=== PATIENT | female | born 1970 | race Hispanic/Latino ===

== ENCOUNTER 2020-02-18 22:22 | Observation (INO) | payer BC, OTHER ==
[~2020-02-18] VITALS: Ht 152.4 cm; Wt 115.2 kg
[2020-02-18 23:06] LABS: BASOPHILS % (AUTO) 0.4 % (0.0-5.0); HEMATOCRIT 37.7 % (36-48); MEAN CORPUSCULAR HEMOGLOBIN 23.1 pg (27.0-33.0); MEAN CORPUSCULAR HGB CONC 29.7 g/dL (32.0-36.0); MEAN CORPUSCULAR VOLUME 77.7 fL (79-99); MONOCYTES % (AUTO) 6.8 % (3.0-13.0); NEUTROPHILS % (AUTO) 69.3 % (40.0-77.0); PLATELET COUNT (AUTO) 302 K/uL (130-400); RED BLOOD CELL COUNT(AUTO) 4.85 MIL/uL (4.00-5.50); RED CELL DISTRIBUTION WIDTH 17.6 % (11.0-15.5); WHITE BLOOD COUNT (AUTO) 14.9 K/uL (4.8-10.8)
[2020-02-18 23:18] LABS: CREATININE 1.2 mg/dL (0.5-1.5); POTASSIUM 3.3 mmol/L (3.5-5.1)
[2020-02-18 23:22] LABS: INR 0.92 (0.85-1.15); PARTIAL THROMBOPLASTIN TIME 26.3 SEC (26.3-35.5)
[2020-02-18 23:23] LABS: ALBUMIN 3.3 g/dL (3.5-5.0); BILIRUBIN,TOTAL 0.2 mg/dL (0.2-1.0); TOTAL PROTEIN, SERUM 7.5 g/dL (6.0-8.3)
[2020-02-18] MEDS ORDERED: NITROGLYCERIN 0.4 MG SL TAB SL ONE (23:26)
[2020-02-18] MEDS ORDERED: POTASSIUM BICARB/CIT AC 25 MEQ TABLET.EFF ONE (23:47)
[2020-02-19] VITALS (7 sets, daily range): BP systolic 122–180; BP diastolic 53–84
[2020-02-19 00:02] LABS: BILIRUBIN,URINE Negative (NEGATIVE); COLOR,URINE Yellow (YELLOW); GLUCOSE, URINE (UA) Negative (NEGATIVE); KETONES,URINE Negative (NEGATIVE); LEUKOCYTE ESTERASE ,URINE Negative (NEGATIVE); NITRATE,URINE Negative (NEGATIVE); OCCULT BLOOD,URINE Negative (NEGATIVE); PROTEIN,URINE Negative (NEGATIVE)
[2020-02-19 00:03] LABS: APPEARANCE,URINE CLEAR (CLEAR)
[2020-02-19] MEDS ORDERED: NITROGLYCERIN 1GM/1 INCH PACKET TD ONE (03:18)
[2020-02-19] MEDS ORDERED: [UNRECOGNIZED DRUG - OTHER] PO (05:07)
[2020-02-19] MEDS ORDERED: HYDR25TA PO (05:07)
[2020-02-19] MEDS ORDERED: METO100T14 PO (05:07)
--- NOTE | 2020-02-19 05:34 | NUR ---
DR REGI EATON PT'S BP ELEVATED
[2020-02-19] MEDS: KETOROLAC TROMETHAMINE 15MG/ML IV SCH (05:45)
[2020-02-19] MEDS ORDERED: HYDRALAZINE HCL 20 MG/ML VIAL IV PRN (05:45)
[2020-02-19] MEDS ORDERED: HYDRALAZINE HCL 20 MG/ML VIAL ONE (05:46)
[2020-02-19] MEDS ORDERED: KETOROLAC TROMETHAMINE 15MG/ML ONE (05:47)
--- NOTE | 2020-02-19 05:54 | NUR ---
DR. DELUNA AWARE OF PT'S COMPLAINING OF CHEST PAIN AND ARM PAIN STILL AND PT'S VITAL SIGNS STATED OK TO GIVE HYDROCHLOROTHIAZIDE MED AM BUT HOLD METOPROLOL AND PRN HYDRALAZINE FOR SBP >160 TO GIVE NOW ALONG WITH TORADOL 15 MG IV ONE TIME ONLY
[2020-02-19] MEDS: HYDROCHLOROTHIAZIDE 25 MG TABLET PO SCH (09:13)
[2020-02-19] MEDS ORDERED: REGADENOSON 0.4 MG/5 ML PF SYG IVP SCH (10:30)
[2020-02-19] MEDS ORDERED: METOPROLOL TARTRATE 50 MG TAB ONE (16:00)
--- NOTE | 2020-02-19 16:26 | NUR ---
INITIAL SW spoke with patient's spouse, Eduin Tena, [phone]. Patient has no home services or DME. Patient is able to complete ADL's and drives. 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 PCP is Dr. Jennifer Mahmood. Pharmacy is [facility] located in [place]. DCP is home. Addendum: 02/19/20 at 1628 by FLORIDALMA CABRALES SS Amended: Links added.
--- NOTE | 2020-02-19 17:00 | NUR ---
CALLED DR. DELUNA CALLED DR. DELUNA, NO ANSWER. LEFT VOICEMAIL THAT [facility] RESULT AVAILABLE FOR PATIENT IN 319. AWAITING CALLBACK.
--- NOTE | 2020-02-19 18:00 | NUR ---
ATTEMPTED TO REACH DR. DELUNA AGAIN CALLED DR. DELUNA AGAIN TO REPORT [facility] RESULTS. NO ANSWER. WILL REATTEMPT TO CALL.
--- NOTE | 2020-02-19 19:11 | NUR ---
REATTEMPTED TO REACH DR. DELUNA AGAIN CALLED DR. DELUNA AGAIN TO REPORT [facility] RESULTS. NO ANSWER. REPORTED TO CHARGE NURSE SIMONE THAT I HAD [address] UNSUCCESSFUL ATTEMPTS TO CONTACT DR. DELUNA.
[2020-02-20 04:00] VITALS: BP 140/65
[2020-02-20] MEDS: KETOROLAC TROMETHAMINE 15MG/ML IV SCH (05:45)
[2020-02-20 07:31] VITALS: BP 179/87
--- NOTE | 2020-02-20 08:00 | NUR ---
NOTE PATIENT [id number]. DENIES PAIN OR DISCOMFORT NO CHEST PAIN. CAME IN WITH CHEST PAIN AND UNDERWENT WORKUP WITH [facility] BEING THE LAST EXAM WHICH WAS NEGATIVE ALONG WITH CARDIAC ENZYMES. BP HAS BEEN ELEVATED SINCE ADMISSION AND LAST NIGHT HAS BEEN NORMAL. THIS AM WAS ELEVATED IN THE 160'S SYSTOLIC BUT THAT WAS BEFORE HER MEDS. DR DELUNA WAS MADE AWARE BY TELEPHONE OF PATIENT'S STATUS BP ELEVATED AND NO LABS FOR 2 DAYS WITH [facility] ELEVATED IN THE 14'S ON ADMISSION BUT GAVE DC ORDERS AND HE WILL SEE PATIENT AT HIS OFFICE WITHIN ONE WEEK. PATIENT HAS BEEN AFEBRILE THIS WHOLE STAY. REPORTS SHE HAD SOME COUGH FOR ABOUT TWO WEEKS AT HOME ALONG WITH CHEST CONGESTION BUT NO FEVER. ON ADMISSION SHE ALSO HAD CXR DONE WITH NEGATIVE FINDINGS. DISCHARGE INSTRUCTIONS GIVEN TO HER AT THIS TIME. VERBALIZED UNDERSTANDING. REFER TO SUMMARY FOR DETAILS.
[2020-02-20 08:02] VITALS: BP 166/100
[2020-02-20] MEDS: HYDROCHLOROTHIAZIDE 25 MG TABLET PO SCH (08:11)
[2020-02-20] MEDS ORDERED: METOPROLOL TARTRATE 50 MG TAB PO SCH (09:00)
== END 2020-02-20 08:30 | disposition home or self-care (01) ==
LOC: EDH 22:22 → EDHIP 02-19 03:31 → 3CH 02-19 03:52
PROVIDERS: ADMIT Internal Medicine; ATTEND Internal Medicine
DX: K29.00 Acute gastritis without bleeding (principal); R07.2 Precordial pain; I10 Essential (primary) hypertension; E66.01 Morbid (severe) obesity due to excess calories; K21.9 Gastro-esophageal reflux disease without esophagitis; I25.2 Old myocardial infarction
CPT/HCPCS: 36415; 71045; 78452; 80053; 81003; 82550; 84484 ×3; 85025; 85610; 85730; 93005 ×3; 93017; 96374; 99285; A9500 ×2; G0378 ×22; J0360 ×2; J1885; J2785